=== PATIENT | male | born 1940 | race Caucasian/White ===

== ENCOUNTER 2016-07-26 08:29 | Emergency (ER) | payer OTHER ==
[~2016-07-26] VITALS: Ht 170.2 cm; Wt 82.6 kg
[~2016-07-26 08:29] MED LIST: ADVAIR 250/501 DISK IH; B COMPLETE1 EACH PO; BROVANA15 MCG/2 M IH; CYANOCOBALAM1000 MCG PO; DAILY VITAMIN1 EAC8 PO; KLOR-CON M2020 MEQ PO; LASIX40 MG PO; LISINOPRIL2.5 MG PO; MULTIVITAMIN1 EAC2 PO; NEBULIZER SOLUTION; NICOTINE PATCH1 EAC1 TD; NORCO 5/3251 TABLET PO; PROAIR HFA8.5 GM IH; SPIRIVA RESPIMAT4 GM IH; SUPER B COMP1 TABLET PO; VITAMIN D1000 INTUN PO; ZESTRIL2.5 MG PO
[2016-07-26] MEDS ORDERED: PERCOCET 5/31 TABLET PO (12:17)
[2016-07-26 12:33] VITALS: BP 125/88
== END 2016-07-26 12:36 | disposition home or self-care (01) ==
LOC: EME 08:29
DX: M16.11 Unilateral primary osteoarthritis, right hip (principal); J45.909 Unspecified asthma, uncomplicated; J44.9 Chronic obstructive pulmonary disease, unspecified; I10 Essential (primary) hypertension; K21.9 Gastro-esophageal reflux disease without esophagitis; Z87.891 Personal history of nicotine dependence
CPT/HCPCS: 73502; 99281; 99284; J1885

== ENCOUNTER 2016-10-30 11:04 | Inpatient (IN) | payer OTHER ==
[~2016-10-30] VITALS: Ht 170.2 cm; Wt 70.9 kg
[~2016-10-30 11:04] MED LIST changes: +PERCOCET 5/31 TABLET PO
[2016-10-30 12:06] LABS: HEMATOCRIT 41.5 % (38.0-50.0); MCHC 34.7 G/DL (30.0-36.0); MCV 98.1 FL (86-99); MEAN PLAT.VOLUME 9.8 uM^3 (9.0-12.4); PLATELET COUNT 152 K/uL (156-360); RBC DIS.WIDTH-CV 13.6 % (11.8-14.6); RBC DIS.WIDTH-SD 48.2 % (39-53); RED BLOOD COUNT 4.23 M/uL (4.00-5.50); WHITE BLOOD COUNT 8.6 K/uL (4.1-10.2)
[2016-10-30 12:11] LABS: CHLORIDE 108 mEq/L (99-109); POTASSIUM 3.3 mEq/L (3.7-5.4); SODIUM 143 mEq/L (136-147)
[2016-10-30 12:14] LABS: GLUCOSE 127 mg/dL (70-99)
[2016-10-30 12:15] LABS: ANION GAP 12 MEQ/L (2-14)
[2016-10-30 12:17] LABS: ALKALINE PHOSPHATASE 63 IU/L (3-129); GFR ESTIMATE (CALCULATED) > 59 mL/min/
[2016-10-30 12:18] LABS: UREA NITROGEN (BUN) 9 mg/dL (9-23)
[2016-10-30 17:20] LABS: ADD MIUA? YES; BILIRUBIN NEGATIVE; BLOOD NEGATIVE; COLOR AMBER ((YELLOW)); GLUCOSE (STRIP) NEGATIVE; KETONES 5; LEUKOCYTES NEGATIVE; NITRITE NEGATIVE; PROTEIN (STRIP) NEGATIVE; SPECIFIC GRAVITY 1.011 (1.000-1.030)
[2016-10-30 17:29] LABS: BACTERIA RARE /HPF; EPITHELIAL CELLS RARE /HPF; HYALINE CASTS 0-5 /LPF; MUCUS TRACE /LPF; RED BLOOD CELLS 0-5 /HPF (0-5); UCUL ADDED? NO; WHITE BLOOD CELLS 0-5 /HPF (0-5)
[2016-10-30] MEDS ORDERED: VITAMIN D2000 UNIT PO (17:36)
[2016-10-30] MEDS ORDERED: CARTIA XT180 MG PO (17:39)
[2016-10-30] MEDS ORDERED: ROXICODONE5 MG PO (17:40)
[2016-10-30] MEDS ORDERED: VENTOLIN HFA18 GM IH (17:40)
[2016-10-30] MEDS ORDERED: LO-DOSE ASPIRIN81 M1 PO (17:40)
[2016-10-30] MEDS ORDERED: CITRATE OF MAG296 ML PO (18:23)
[2016-10-30 21:52] VITALS: BP 126/79
[2016-10-30 22:27] LABS: CK-MB 5.1 ng/mL (0.0-4.9); TROP-I INTERPRETATION NEGATIVE; TROPONIN-I 0.01 ng/mL (0.0-0.30)
[2016-10-30 22:41] LABS: CREATINE KINASE 235 IU/L (1-294); TOTAL CK 235 IU/L (1-294)
[2016-10-31 04:18] VITALS: BP 111/64
[2016-10-31 05:46] LABS: EOSINOPHIL (%) 0 % (0-5); IMMATURE GRANULOCYTE (%) 0.4 % (0.0-0.7); INSTRUMENT ABS NEUTROPHIL CT 4.9 K/uL; LYMPHOCYTE COUNT 0.5 K/uL (1.0-2.8); MCH 34.6 PG (29.0-34.0); MCHC 34.6 G/DL (30.0-36.0); MEAN PLAT.VOLUME 10.8 uM^3 (9.0-12.4); MONOCYTE (%) 4.4 % (3-12); MONOCYTE COUNT 0.3 K/uL (0-0.8); NEUTROPHIL (%) 86.1 % (45-76); NEUTROPHIL COUNT 4.9 K/uL (1.8-6.4); PLATELET COUNT 129 K/uL (156-360); RBC DIS.WIDTH-CV 13.7 % (11.8-14.6); RBC DIS.WIDTH-SD 49.9 % (39-53); WHITE BLOOD COUNT 5.6 K/uL (4.1-10.2)
[2016-10-31 06:14] LABS: ANION GAP 10 MEQ/L (2-14); CHLORIDE 110 MEQ/L (99-109); GFR ESTIMATE (CALCULATED) > 59 mL/min/; GLUCOSE 146 mg/dL (70-99); POTASSIUM 3.7 MEQ/L (3.7-5.4); SAMPLE HEMOLYSIS CHECK 0; SAMPLE ICTERIC CHECK 0; SAMPLE LIPEMIA CHECK 0; SODIUM 143 MEQ/L (136-147); UREA NITROGEN (BUN) 13 mg/dL (9-23)
[2016-10-31 06:29] LABS: TROP-I INTERPRETATION NEGATIVE; TROPONIN-I 0.01 ng/mL (0.0-0.30)
[2016-10-31 06:43] LABS: CREATINE KINASE 163 IU/L (1-294); TOTAL CK 163 IU/L (1-294)
[2016-10-31 07:12] LABS: CK-MB 4.1 ng/mL (0.0-4.9)
[2016-10-31 09:00] VITALS: BP 109/56
[2016-10-31 12:00] VITALS: BP 102/62
[2016-10-31 15:14] LABS: TROP-I INTERPRETATION NEGATIVE; TROPONIN-I < 0.01 ng/mL (0.0-0.30)
[2016-10-31 15:58] LABS: CREATINE KINASE 219 IU/L (1-294); TOTAL CK 219 IU/L (1-294)
[2016-10-31 17:38] VITALS: BP 103/58
[2016-10-31 18:13] LABS: CK-MB 5.3 ng/mL (0.0-4.9)
== END 2016-10-31 19:20 | disposition home or self-care (01) | DRG 918 ==
LOC: EME 11:04 → EDOF 19:17 → 4EAST 21:35
PROVIDERS: Family Medicine
DX: T40.2X5A Adverse effect of other opioids, initial encounter (principal); K59.03 Drug induced constipation; I47.2 Ventricular tachycardia; I49.3 Ventricular premature depolarization; E86.0 Dehydration; E87.6 Hypokalemia; J44.1 Chronic obstructive pulmonary disease with (acute) exacerbation; I11.0 Hypertensive heart disease with heart failure; I50.9 Heart failure, unspecified; G89.4 Chronic pain syndrome; I48.1 Persistent atrial fibrillation; I48.2 Chronic atrial fibrillation; E78.5 Hyperlipidemia, unspecified; K21.9 Gastro-esophageal reflux disease without esophagitis; K70.30 Alcoholic cirrhosis of liver without ascites; Z66 Do not resuscitate; F10.21 Alcohol dependence, in remission; F17.201 Nicotine dependence, unspecified, in remission; M40.209 Unspecified kyphosis, site unspecified; K46.9 Unspecified abdominal hernia without obstruction or gangrene; Z79.82 Long term (current) use of aspirin; Z85.810 Personal history of malignant neoplasm of tongue; Z87.311 Personal history of (healed) other pathological fracture
CPT/HCPCS: 74176; 80048; 80053; 81003; 82550; 82550 91; 82553; 84484; 85025; 85027; 93005; 94640; 94644; 99202; 99281; 99285; J1644; J2930; J3480; J7030